=== PATIENT | male | born 1975 | race Caucasian/White ===

== ENCOUNTER 2024-10-03 01:06 | Emergency (ER) | payer OTHER ==
[~2024-10-03] VITALS: Ht 172.7 cm; Wt 77.1 kg
[~2024-10-03 01:06] MED LIST: DIVA250EC PO; Percocet 5-3251 EACH PO; QUET200; Seroquel Xr50 MG PO; [UNRECOGNIZED DRUG - OTHER]
[2024-10-03 01:17] VITALS: BP 147/98
[2024-10-03] MEDS ORDERED: Proparacaine 0.5% Opth Soln 15 ML BTL BOTHEYES ONE (01:50)
[2024-10-03] MEDS ORDERED: Fluorescein Sod 1MG Opth Strips BOTHEYES ONE (01:50)
[2024-10-03] MEDS ORDERED: Erythromycin 0.5% Opth Oint 1 gm RIGHTEYE ONE (02:15)
[2024-10-03] MEDS ORDERED: IBU600 MG PO (02:17)
[2024-10-03] MEDS ORDERED: ERYT.5TO RIGHTEYE (02:17)
== END 2024-10-03 02:33 | disposition home or self-care (01) ==
LOC: ER 01:06
DX: S05.01XA Injury of conjunctiva and corneal abrasion without foreign body, right eye, initial encounter (principal); I10 Essential (primary) hypertension; F17.200 Nicotine dependence, unspecified, uncomplicated; X58.XXXA Exposure to other specified factors, initial encounter; Z79.899 Other long term (current) drug therapy
CPT/HCPCS: 90471; 90715; 99283-25; A9270; A9270-GY